=== PATIENT | female | born 1955 | race Caucasian/White ===

== ENCOUNTER 2023-05-04 08:37 | Day surgery (SDC) | payer OTHER, SELFPAY ==
[2023-04-29 10:30] VITALS: BMI 25.3
--- NOTE | 2023-05-01 08:06 | MHC.SHP ---
Pre-Procedural Eval Section A Date of Service: 05/01/23 The patient is an INPATIENT: No Changes since office visit: No Cold of Flu in the past 2 weeks, No New Medical Problems, No Changes in Medication and No Patient answered all questions The History & Physical has been completed within 30 days and I have reviewed it.: Yes Section B Chief Complaint: Age-related nuclear cataract, right eye Allergies: Allergies Allergy/AdvReac Type Severity Reaction Status Date / Time No Known Allergies Allergy Verified 04/29/23 10:35 Plan Diagnosis/Plan: Unchanged I have reviewed the history and physical and performed a pertinent physical examination on my patient. No changes have occurred unless specified. Time Spent With Patient Time: Total time managing care of this patient today ____ minutes.
--- NOTE | 2023-05-01 09:33 | HO.ANESPROP2 ---
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 If so, by whom?: No Are you DNR?: No Advance Directives: No Advance Directives Information Provided: Yes (brochure mailed) Advance Directives on File: No Recently lost weight without trying: No Eating poorly because of decreased appetite: No Nutrition Risks: No Nutritional Risk Poor oral hygiene: No Meds Allergies Allergy/AdvReac Type Severity Reaction Status Date / Time No Known Allergies Allergy Verified 04/29/23 10:35 Home Medications Medication Instructions Recorded Confirmed Last Taken Type atorvastatin 40 mg tablet 40 mg PO DAILY 04/29/23 04/29/23 Unknown History calcium carbonate 600 mg-vitamin 1 tab PO BID 04/29/23 04/29/23 Unknown History D3 10 mcg (400 unit) tablet diclofenac sodium 75 mg 75 mg PO BID 04/29/23 04/29/23 Unknown History tablet,delayed release gabapentin 400 mg capsule 800 mg PO BID 04/29/23 04/29/23 Unknown History insulin aspart U-100 100 unit/mL 20 - 50 unit subcut DIRECTED 04/29/23 04/29/23 Unknown History subcutaneous solution (Novolog U-100 Insulin aspart) multivitamin with folic acid 400 1 tab PO DAILY 04/29/23 04/29/23 Unknown History mcg tablet (Daily-Eduardo (with folic acid)) omeprazole 20 mg capsule,delayed 20 mg PO BID 04/29/23 04/29/2305/04/23 History release tizanidine 4 mg tablet 4 mg PO TID PRN muscle spasm 04/29/23 04/29/23 05/04/23 History Exam Exam Date and Time: May 01, 2023 09 Height,Weight and Vital Signs: Height 5 ft 3 in Weight 64.864 kg Assessment and Plan Assessment Anesthesia Assessment: Chart Reviewed Documented by User: Renny Peacock MD 05/04/23 15:48 [facility] Past Medical History Medical History (Updated 04/29/23 @ 10:30 by Rose Marie Torres RN) Diabetes Elevated cholesterol GERD (gastroesophageal reflux disease) 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 Family History Family history of problems with anesthesia: No Surgical History Surgical History (Updated 04/29/23 @ 15:28 by Rose Marie Torres RN) History of lumbar fusion Hx of arthroscopy of right knee Hx of dilation and curettage Hx of tonsillectomy History of Problems with Anesthesia: No Social History Social History Are you a primary career center advisor to a significant other at home: No Do you presently have visiting nurse or other home services: No Patient Tobacco Use Status: Never used Tobacco Use of substances other than those prescribed or required for medical reasons: No Have you been hit, kicked, punched, or otherwise hurt by someone within the past year? If so, by whom?: No Are you DNR?: No Advance Directives: No Advance Directives Information Provided: Yes (brochure mailed) Advance Directives on File: No Recently lost weight without trying: No Eating poorly because of decreased appetite: No Nutrition Risks: No Nutritional Risk Poor oral hygiene: No Meds Allergies Allergy/AdvReac Type Severity Reaction Status Date / Time No Known Allergies Allergy Verified 04/29/23 10:35 Home Medications Medication Instructions Recorded Confirmed Last Taken Type atorvastatin 40 mg tablet 40 mg PO DAILY 04/29/23 04/29/23 Unknown History calcium carbonate 600 mg-vitamin 1 tab PO BID 04/29/23 04/29/23 Unknown History D3 10 mcg (400 unit) tablet diclofenac sodium 75 mg 75 mg PO BID 04/29/23 04/29/23 Unknown History tablet,delayed release gabapentin 400 mg capsule 800 mg PO BID 04/29/23 04/29/23 Unknown History insulin aspart U-100 100 unit/mL 20 - 50 unit subcut DIRECTED 04/29/23 04/29/23 Unknown History subcutaneous solution (Novolog U-100 Insulin aspart) multivitamin with folic acid 400 1 tab PO DAILY 04/29/23 04/29/23 Unknown History mcg tablet (Daily-Eduardo (with folic acid)) omeprazole 20 mg capsule,delayed 20 mg PO BID 04/29/23 04/29/23 05/04/23 History release tizanidine 4 mg tablet 4 mg PO TID PRN muscle spasm 04/29/23 04/29/23 05/04/23 History Exam Airway Mallampati Class: IV Loose/Missing/Broken Teeth: Yes Assessment and Plan Final Anesthetic Review Family History of Problems with Anesthesia: No History of Problems with Anesthesia: No NPO: Yes ASA Class: II Final Preanesthetic Review: Meds/Allgs Chart Reviewed and Consent Obtained/Reviewed Patient Risk: Intermediate Procedure Risk: Intermediate Anesthetic Plan Anesthetic Plan: MAC: Disposition: Standard PACU
[2023-05-04 09:03] VITALS: BP 122/64; PULSE 74; RESP 20; TEMP 36.1; O2SAT 98
[2023-05-04] MEDS: Phenylephrine HCL 2.5% Oph SoL 2 ML BOTTLE 1 DROP EYE-RIGHT ×3 (09:13→09:15)
[2023-05-04] MEDS: Tropicamide 1 % Ophth Sol 3 ML BTL 1 DROP EYE-RIGHT ×3 (09:13→09:15)
[2023-05-04] MEDS: Cyclopentolate 1 % Ophth Sol 2 ML DRPBTL 1 DROP EYE-RIGHT ×3 (09:13→09:14)
[2023-05-04] MEDS: Lactated Ringers 500 ML 50 ML IV (09:13)
[2023-05-04] MEDS: Ketorolac Tromethamine 0.5% Op 5 ML DROPS 1 DROP EYE-RIGHT ×3 (09:13→09:15)
[2023-05-04] MEDS: Tetracaine HCl/PF 0.5% Oph Sol 4 ML DROPS 1 DROP EYE-RIGHT (09:13)
--- NOTE | 2023-05-04 10:40 | HO.PNOPHT ---
Ophthalmology Procedure Procedure Date of Service: 05/04/23 Ophthalmology Viscoelastic: Healon Duet Dual Pack Pro Ophthalmology Lenses: TECNIS [id number] (22) Procedure Notes: PREOPERATIVE DIAGNOSIS: Decreased visual acuity right eye secondary to cataract POSTOPERATIVE DIAGNOSIS: Same PROCEDURE: Right cataract extraction with toric multifocal intraocular lens insertion axis 84 degrees SURGEON: Edmar Jones M.D. ANESTHESIA: Topical/MAC ESTIMATED BLOOD LOSS: None COMPLICATIONS: None After obtaining informed consent, the patient was brought to the operating room suite and placed in the supine position. After adequate sedation per anesthesia, topical drops of Tetracaine were given to the right eye. The eye was then prepped and draped in the usual sterile fashion. The operating room microscope was then positioned over the operative eye and a lid speculum placed. A paracentesis was created. Viscoelastic was then instilled into the anterior chamber. A three plane incision was then created temporally, utilizing a 2.85 mm keratome. Capsulotomy forceps were then utilized to create a circular tear capsulotomy. Hydrodissection and hydrodelineation were carried out until adequate mobilization of the nucleus occurred. Phacoemulsification was then utilized to remove the dense central nucleus followed by removal of the cortical material utilizing the automated aspiration irrigation unit. Viscoelastic was instilled into the posterior capsular bag followed by placement of a toric multifocal posterior chamber intraocular lens without difficulty. The residual Viscoelastic was then removed utilizing the automated IA machine. The wound was checked and found to be watertight. The patient tolerated the procedure well and the lid speculum was removed. Intracameral injection of Vigamox 0.1 mL followed by a subtenon injection of Kenalog-40 0.2 mL were administered. The patient will be seen in the a.m.
[2023-05-04 11:02] VITALS: BP 145/69; PULSE 76; RESP 16; TEMP 37.2; O2SAT 99
[2023-05-04] MEDS: ondansetron HCL 4 MG/2 ML VIAL IVPUSH (11:14)
[2023-05-04 11:15] VITALS: BP 132/81; PULSE 76; RESP 18; TEMP 37.2; O2SAT 98
== END 2023-05-04 11:27 | disposition home or self-care (01) ==
PROVIDERS: Visit Provider Ophthalmology
PROC: (CPT 66984; principal; 2023-05-04 11:40)
DX: H25.11 Age-related nuclear cataract, right eye (principal); I10 Essential (primary) hypertension; E11.9 Type 2 diabetes mellitus without complications; Z79.4 Long term (current) use of insulin; Z96.41 Presence of insulin pump (external) (internal); Z79.899 Other long term (current) drug therapy
CPT/HCPCS: 66984; J2405; J3010; J3301; V2788

== ENCOUNTER 2023-05-18 06:31 | Day surgery (SDC) | payer OTHER, SELFPAY ==
[2023-04-29 10:36] VITALS: BMI 25.3
--- NOTE | 2023-05-15 07:44 | MHC.SHP ---
Pre-Procedural Eval Section A Date of Service: 05/15/23 The patient is an INPATIENT: No Changes since office visit: No Cold of Flu in the past 2 weeks, No New Medical Problems, No Changes in Medication and No Patient answered all questions The History & Physical has been completed within 30 days and I have reviewed it.: Yes Section B Chief Complaint: Age-related nuclear cataract, left eye Allergies: Allergies Allergy/AdvReac Type Severity Reaction Status Date / Time No Known Allergies Allergy Verified 04/29/23 10:35 Plan Diagnosis/Plan: Unchanged I have reviewed the history and physical and performed a pertinent physical examination on my patient. No changes have occurred unless specified. Time Spent With Patient Time: Total time managing care of this patient today ____ minutes.
--- NOTE | 2023-05-15 12:13 | P.CONAN_ITS ---
Documented by User: Thania Scott NP 05/15/23 12:13 HPI - Anesthesia Eval Consult details Narrative: 68yo F for Left Cataract Extraction IOL Insertion PCP cleared Right eye done 05/04/23 with TIVA: Fent 50 [facility] Past Medical History Medical History Hx of ectopic GERD (gastroesophageal reflux disease) Insulin pump in place Diabetes Elevated cholesterol Family History Family history of problems with anesthesia: No Surgical History Surgical History Hx of arthroscopy of right knee History of lumbar fusion Hx of dilation and curettage Hx of tonsillectomy History of Problems with Anesthesia: No Social History Social History Are you a primary congregational care pastor to a significant other at home: No Do you presently have visiting nurse or other home services: No Patient Tobacco Use Status: Never used Tobacco Use of substances other than those prescribed or required for medical reasons: No Have you been hit, kicked, punched, or otherwise hurt by someone within the past year? If so, by whom?: No Are you DNR?: No Advance Directives: No Advance Directives Information Provided: Yes (brochure mailed) Advance Directives on File: No Recently lost weight without trying: No Eating poorly because of decreased appetite: No Nutrition Risks: No Nutritional Risk Poor oral hygiene: No Meds Allergies Allergy/AdvReac Type Severity Reaction Status Date / Time No Known Allergies Allergy Verified 04/29/23 10:35 Home Medications Medication Instructions Recorded Confirmed Last Taken Type atorvastatin 40 mg tablet 40 mg PO DAILY 04/29/23 04/29/23 Unknown History calcium carbonate 600 mg-vitamin 1 tab PO BID 04/29/23 04/29/23 Unknown History D3 10 mcg (400 unit) tablet diclofenac sodium 75 mg 75 mg PO BID 04/29/23 04/29/23 Unknown History tablet,delayed release gabapentin 400 mg capsule 800 mg PO BID 04/29/23 04/29/23 Unknown History insulin aspart U-100 100 unit/mL 20 - 50 unit subcut DIRECTED 04/29/23 04/29/23 Unknown History subcutaneous solution (Novolog U-100 Insulin aspart) multivitamin with folic acid 400 1 tab PO DAILY 04/29/23 04/29/23 Unknown History mcg tablet (Daily-Eduardo (with folic acid)) omeprazole 20 mg capsule,delayed 20 mg PO BID 04/29/23 04/29/23 05/18/23 History release tizanidine 4 mg tablet 4 mg PO TID PRN muscle spasm 04/29/23 04/29/23 05/18/23 History Exam Exam Date and Time: May 15, 2023 1213 Height,Weight and Vital Signs: Height 5 ft 3 in Weight 64.864 kg Assessment and Plan Assessment Anesthesia Assessment: Chart Reviewed Final Anesthetic Review Family History of Problems with Anesthesia: No History of Problems with Anesthesia: No Documented by User: Massiel Diop MD 05/18/23 08:18 [facility] Past Medical History Medical History Hx of ectopic GERD (gastroesophageal reflux disease) Insulin pump in place Diabetes Elevated cholesterol Surgical History Surgical History Hx of arthroscopy of right knee History of lumbar fusion Hx of dilation and curettage Hx of tonsillectomy History of Problems with Anesthesia: Yes (PONV with last cataract surgery with fentanyl) Social History Social History Are you a primary congregational care pastor to a significant other at home: No Do you presently have visiting nurse or other home services: No Patient Tobacco Use Status: Never used Tobacco Use of substances other than those prescribed or required for medical reasons: No Have you been hit, kicked, punched, or otherwise hurt by someone within the past year? If so, by whom?: No Are you DNR?: No Advance Directives: No Advance Directives Information Provided: Yes (brochure mailed) Advance Directives on File: No Recently lost weight without trying: No Eating poorly because of decreased appetite: No Nutrition Risks: No Nutritional Risk Poor oral hygiene: No Meds Allergies Allergy/AdvReac Type Severity Reaction Status Date / Time No Known Allergies Allergy Verified 04/29/23 10:35 Home Medications Medication Instructions Recorded Confirmed Last Taken Type atorvastatin 40 mg tablet 40 mg PO DAILY 04/29/23 04/29/23 Unknown History calcium carbonate 600 mg-vitamin 1 tab PO BID 04/29/23 04/29/23 Unknown History D3 10 mcg (400 unit) tablet diclofenac sodium 75 mg 75 mg PO BID 04/29/23 04/29/23 Unknown History tablet,delayed release gabapentin 400 mg capsule 800 mg PO BID 04/29/23 04/29/23 Unknown History insulin aspart U-100 100 unit/mL 20 - 50 unit subcut DIRECTED 04/29/2304/29 Unknown History subcutaneous solution (Novolog U-100 Insulin aspart) multivitamin with folic acid 400 1 tab PO DAILY 04/29/23 04/29/23 Unknown History mcg tablet (Daily-Eduardo (with folic acid)) omeprazole 20 mg capsule,delayed 20 mg PO BID 04/29/23 04/29/23 05/18/23 History release tizanidine 4 mg tablet 4 mg PO TID PRN muscle spasm 04/29/23 04/29/23 05/18/23 History Exam Height,Weight and Vital Signs: Height 5 ft 3 in Weight 64.864 kg Vital Signs Temp Pulse Resp BP Pulse Ox O2 Del Method 05/18/23 07:55 96.5 F L 68 18 105/65 97 Room Air Pertinent Lab Results Pertinent Lab Results: Lab Results 05/18/23 Range/Units 07:50 POC Glucose 143 H (60-115) mg/dL Airway Mallampati Class: II TM Dist: >3cm Neck ROM: Full Loose/Missing/Broken Teeth: No (Denies broken, loose, missing teeth) Heart: RRR Lungs: CTAB Assessment and Plan Assessment Anesthesia Assessment: Anesthesia Plan Discussed Final Anesthetic Review History of Problems with Anesthesia: Yes (PONV with last cataract surgery with fentanyl) NPO: Yes ASA Class: II Final Preanesthetic Review: No Changes in Pt Med Stat, Meds/Allgs Chart Reviewed, Consent Obtained/Reviewed and Anes Risks/Benef Reviewed Patient Risk: Low Procedure Risk: Low Assessment/Block/Sedation in SS: Assess/Block/Sedation- Anesthetic Plan Anesthetic Plan: MAC: Disposition: Standard PACU
[2023-05-18 07:54] LABS: Glucose, Whole Blood 143 mg/dL (60-115)
[2023-05-18 07:55] VITALS: BP 105/65; PULSE 68; RESP 18; TEMP 35.8; O2SAT 97
[2023-05-18] MEDS: Tetracaine HCl/PF 0.5% Oph Sol 4 ML DROPS 1 DROP EYE-LEFT (08:00)
[2023-05-18] MEDS: Phenylephrine HCL 2.5% Oph SoL 2 ML BOTTLE 1 DROP EYE-LEFT ×3 (08:01→08:12)
[2023-05-18] MEDS: Tropicamide 1 % Ophth Sol 3 ML BTL 1 DROP EYE-LEFT ×3 (08:01→08:12)
[2023-05-18] MEDS: Ketorolac Tromethamine 0.5% Op 5 ML DROPS 1 DROP EYE-LEFT ×3 (08:01→08:12)
[2023-05-18] MEDS: Cyclopentolate 1 % Ophth Sol 2 ML DRPBTL 1 DROP EYE-LEFT ×3 (08:01→08:11)
[2023-05-18] MEDS: Lactated Ringers 500 ML 50 ML IV (08:05)
--- NOTE | 2023-05-18 08:32 | HO.PNOPHT ---
Ophthalmology Procedure Procedure Date of Service: 05/18/23 Ophthalmology Viscoelastic: Healon Duet Dual Pack Pro Ophthalmology Lenses: TECNIS ZXR00 (21.5) Procedure Notes: PREOPERATIVE DIAGNOSIS: Decreased visual acuity left eye secondary to cataract POSTOPERATIVE DIAGNOSIS: Same PROCEDURE: Left cataract extraction with intraocular lens insertion SURGEON: Edmar Jones M.D. ANESTHESIA: Topical/MAC ESTIMATED BLOOD LOSS: None COMPLICATIONS: None After obtaining informed consent, the patient was brought to the operation room suite and placed in the supine position. After adequate sedation per anesthesia, topical drops of Tetracaine were given to the left eye. The eye was then prepped and draped in the usual sterile fashion. The operating room microscope was then positioned over the operative eye and a lid speculum placed. A paracentesis was created. Viscoelastic was then instilled into the anterior chamber. A three plane incision was then created temporally, utilizing a 2.85 mm keratome. Capsulotomy forceps were then utilized to create a circular tear capsulotomy. Hydrodissection and hydrodelineation were carried out until adequate mobilization of the nucleus occurred. Phacoemulsification was then utilized to remove the dense central nucleus followed by removal of the cortical material utilizing the automated aspiration irrigation unit. Viscoat elastic was instilled into the posterior capsular bag followed by placement of a posterior chamber intraocular lens without difficulty. The residual Viscoat elastic was then removed utilizing the automated IA machine. The wound was check and found to be watertight. The patient tolerated the procedure well and the lid speculum was removed. Intracameral injection of Vigamox 0.1 mL followed by a subtenon injection of Kenalog-40 0.2 mL were administered. The patient will be seen in the a.m.
[2023-05-18 08:59] VITALS: BP 113/74; PULSE 78; RESP 18; TEMP 36.6; O2SAT 96
== END 2023-05-18 09:06 | disposition home or self-care (01) ==
PROVIDERS: Visit Provider Ophthalmology
PROC: (CPT 66984; principal; 2023-05-18 08:50)
DX: H25.12 Age-related nuclear cataract, left eye (principal); H54.7 Unspecified visual loss; H35.033 Hypertensive retinopathy, bilateral; H18.413 Arcus senilis, bilateral; I10 Essential (primary) hypertension; E11.9 Type 2 diabetes mellitus without complications; Z79.4 Long term (current) use of insulin; Z79.899 Other long term (current) drug therapy
CPT/HCPCS: 66984; 82947; J2250; J2405; J3301; V2788